=== PATIENT | male | born 1955 | race American Indian/Alaskan Native ===

== ENCOUNTER 2018-09-06 15:59 | Inpatient (IN) | payer MEDICARE ==
[2018-09-06] MEDS ORDERED: COGENTIN IM ONE (16:30)
[2018-09-06] MEDS ORDERED: BENADRYL IV ONE ×3 (16:31→18:10)
--- NOTE | 2018-09-06 16:39 | Emergency Department Report ---
ED Psych HPI - General Chief Complaint: Medical Clearance Stated Complaint: TREMORS Time Seen by Provider: 09/06/18 16:26 Source: patient, EMS Mode of arrival: Stretcher - History of Present Illness Initial Comments: Mr. Bazan is a 63-year-old male with history of depression, congestive heart failure, diabetes mellitus, hypertension, CKD, pancreatitis, coronary artery disease, neuropathy, glaucoma who presents from [facility] during a voluntary admission for depression. He has been treated since August 29. He was sent to our emergency department for evaluation for possible EPS. He's had tremors involuntary movements, trouble with speech, tremors. He has intact strength but unable to control his extremities. New medication Invega given. Symptoms started this morning. Additional psychotropic and mood stabilizing medications include Risperdal, Prozac, [place]. PRN medications includes Yossidol Complaint: feels depressed, other -: Gradual Associated Psychiatric Symptoms: depression Quality: constant Improves With: none Worsens With: medication Context: other (as per HPI) Associated Symptoms: denies other symptoms Treatments Prior to Arrival: other (benadryl) - Related Data Allergies Allergy/AdvReac Type Severity Reaction Status Date / Time Penicillins Allergy Unknown Verified 09/06/18 16:17 ED Review of Systems ROS: Stated complaint: TREMORS Other details as noted in HPI Comment: All other systems reviewed and negative Constitutional: denies: fever, malaise Respiratory: denies: cough Cardiovascular: denies: chest pain Gastrointestinal: denies: abdominal pain Neurological: denies: headache, numbness, paresthesias ED Past Medical Hx - Past Medical History Previous Medical History?: Yes Hx Hypertension: Yes Hx Congestive Heart Failure: Yes Hx Diabetes: Yes Hx Renal Disease: Yes (CKD) Hx Psychiatric Treatment: Yes (MDD, voluntary @ [facility]) Additional medical history: neuropathy, pancreatitis, CAD, glaucoma - Surgical History Past Surgical History?: Yes Hx Pacemaker: Yes Hx Internal Defibrillator: Yes - Social History Smoking Status: Unknown if ever smoked ED Physical Exam - General Limitations: Other General appearance: alert, in no apparent distress, other (no acute distress, stuttering speech) - Head Head exam: Present: atraumatic, normocephalic - Eye Eye exam: Present: normal appearance - ENT ENT exam: Present: mucous membranes moist - Neck Neck exam: Present: normal inspection, full ROM - Respiratory Respiratory exam: Present: normal lung sounds bilaterally. Absent: respiratory distress, wheezes, rales, rhonchi - Cardiovascular Cardiovascular Exam: Present: regular rate, normal rhythm. Absent: systolic murmur, diastolic murmur, rubs, gallop - GI/Abdominal GI/Abdominal exam: Present: soft, normal bowel sounds. Absent: distended, tenderness, guarding, rebound - Rectal Rectal exam: Present: deferred - Extremities Exam Extremities exam: Present: normal inspection - Back Exam Back exam: Present: normal inspection - Neurological Exam Neurological exam: Present: alert, oriented X3 - Expanded Neurological Exam Expanded Patient oriented to: Present: person, place, time Speech: Present: expressive aphasia (stuttering speech) Cranial nerves: EOM's Intact: Normal Sensory exam: Upper Extremity Light Touch: Normal Motor strength exam: RUE: 5, LUE: 5, RLE: 5, LLE: 5 Best Eye Response (Halma): (4) open spontaneously Best Motor Response (Valery): (6) obeys commands Best Verbal Response (Halma): (5) oriented Halma Total: 15 - Psychiatric Psychiatric exam: Present: normal affect, normal mood - Skin Skin exam: Present: warm, dry, intact, normal color. Absent: rash - Other Other exam information: Tremors noted on outstretched hands ED Course Vital Signs 09/06/18 09/06/18 09/06/18 16:17 16:44 17:45 Temperature 98.9 F Pulse Rate 88 80 Respiratory 18 18 18 Rate Blood Pressure 132/67 Blood Pressure 124/77 [Left] O2 Sat by Pulse 97 99 Oximetry ED Medical Decision Making - Lab Data Result diagrams: 09/06/18 16:33 09/06/18 16:33 - Radiology Data Radiology results: report reviewed - Medical Decision Making Mr. Rodriguez presents with speech disturbance, tremors, involuntary movenments, ataxia. DDX: Extraparametal symptoms, CVA, Wernicke's encephalopathy. No re ported hx of alcohol use according to patient Medications benadryl and cogentin given and symptoms worsened. During ED observation, Mr. Rodriguez attempted to get up from stretcher and fell hard to t he floor due to unstable gait. Fortunately, no signification trauma due to fall while in ED. NIHSS 4 TPA not indicated due to many possibilities for presentation beyond CVA. Admitted to hospitalist's service for further treatment. Critical care attestation.: If time is entered above; I have spent that time in minutes in the direct care of this critically ill patient, excluding procedure time. ED Disposition Clinical Impression: Ataxia, Expressive aphasia Disposition: DC-09 OP ADMIT IP TO THIS HOSP Is pt being admited?: Yes Does the pt Need Aspirin: No Condition: Stable Referrals: PRIMARY CARE, [Primary Care Provider] - 3-5 Days
[2018-09-06 17:22] LABS: Basophils % (Auto) 0.7 % (0.0-1.8); Eosinophils # (Auto) 0.2 K/mm3 (0.0-0.4); Eosinophils % (Auto) 2.3 % (0.0-4.3); Hematocrit 33.1 % (35.5-45.6); Hemoglobin 10.7 gm/dl (11.8-15.2); Lymphocytes % (Auto) 14.6 % (13.4-35.0); Mean Corpuscular HGB Conc 32 % (32-34); Mean Corpuscular Volume 87 fl (84-94); Monocytes # (Auto) 0.7 K/mm3 (0.0-0.8); Monocytes % (Auto) 10.2 % (0.0-7.3); Platelet Count 171 K/mm3 (140-440); Red Blood Count 3.82 M/mm3 (3.65-5.03); Red Cell Distribution Width 15.9 % (13.2-15.2)
[2018-09-06 17:36] LABS: BUN/Creatinine Ratio 13; Blood Urea Nitrogen 15 mg/dL (9-20); Calcium 8.7 mg/dL (8.4-10.2); Hemolysis Index 7
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
[2018-09-06 19:16] LABS: INR 0.88 (0.87-1.13)
[2018-09-06 19:17] LABS: Partial Thromboplastin Time 26.5 Sec. (24.2-36.6)
[2018-09-06] MEDS ORDERED: D50W (25GM) Syringe IV PRN (19:58)
[2018-09-06] MEDS ORDERED: SODIUM CHLORIDE FLUSH SYRINGE 10 ML IV PRN (20:08)
[2018-09-06] MEDS ORDERED: APRESOLINE IV PRN (20:28)
--- NOTE | 2018-09-06 20:33 | History and Physical Report ---
<TOAN FLOWERS - Last Filed: 09/06/18 20:35> History of Present Illness Date of examination: 09/06/18 Date of admission: 09/06/18 19:00 Chief complaint: Suspicion of EPS History of present illness: 63-year-old -[place] male who resides at [facility] with history major depressive disorder and hypertension, CHF, DM 2, GERD, CAD who presents to [facility] via EMS with complaints tremors and involuntary movement. Patient was found to have questionable EPS activity. He had tremors in all extremities, involuntary movements, trouble with speech. EMS was called and he was transported to our facility for further evaluation and treatment. He denies fever, cough, hemoptysis, headache, dizziness, visual alterations, SI/HI. Past History Past Medical History: CAD, diabetes, GERD, heart failure, hypertension, other (major depressive disorder, glaucoma, neuropathy, pancreatitis, genital herpes ) Past Surgical History: Other (pacemaker, defibrillator) Social history: smoking, alcohol abuse (patient does not want to discuss alcohol history), other (voluntary admission to [facility]) Family history: no significant family history Medications and Allergies Allergies Allergy/AdvReac Type Severity Reaction Status Date / Time Penicillins Allergy Unknown Verified 09/06/18 16:17 Active Meds: Active Medications Acyclovir (Zovirax) 400 mg PO Q12HR [facility] Aspirin (Aspirin) 325 mg PO QDAY [facility] Atorvastatin Calcium (Lipitor) 40 mg PO QHS [facility] Dextrose (D50w (25gm) Syringe) 50 ml IV PRN PRN PRN Reason: Hypoglycemia Fluoxetine HCl (Prozac) 20 mg PO QDAY [facility] Folic Acid (Folvite) 1 mg PO QDAY [facility] Gabapentin (Neurontin) 600 mg PO TID [facility] Hydralazine HCl (Apresoline) 10 mg IV Q4HR PRN PRN Reason: Blood Pressure Thiamine HCl 100 mg/ Sodium (Chloride) 51 mls @ 100 mls/hr IV TID [facility] Stop: 09/12/18 20:59 Insulin Glargine (Lantus) 15 units SUB-Q QHS JOLENE Insulin Human Lispro (Humalog) 0 unit SUB-Q ACHS JOLENE; Protocol Insulin Human Lispro (Humalog) 5 unit SUB-Q AC [facility]OL[facility] [place] Carbonate (Eskalith) 300 mg PO BID JOL[facility] Metoprolol Succinate (Toprol Xl) 50 mg PO QDAY [facility] Pantoprazole Sodium (Protonix) 40 mg PO QDAY [facility] Risperidone (Risperdal) 1 mg PO HS [facility]OLENE Sodium Chloride (Sodium Chloride Flush Syringe 10 Ml) 10 ml IV PRN PRN PRN Reason: LINE FLUSH Review of Systems All systems: negative (reviewed and no additional multiple complaints except as listed below) Neurological: tremors, lack of coordination, confusion, gait dysfunction Psychiatric: other (major depression disorder) Exam - Physical Exam Narrative exam: Physical exam General appearance: Present: No acute distress, alert, attentive 3, Neuro: expressive aphasia, delayed response stutters when speaking, tremors to upper extremities, unsteady gait - EENT Eyes: Present: PERRL, EOM intact ENT: hearing intact, poor dentition - Neck Neck: Present: supple, normal ROM - Respiratory Respiratory effort: Non-labored Respiratory: Clear throughout - Cardiovascular Heart rate:80 (bpm) Rhythm: Sinus rhythm regular Heart Sounds: Present: S1 & S2. Absent: rub, click - Extremities Extremities: no ischemia, pulses intact, - Peripheral Assessment Peripheral Pulses: within normal limits - Abdominal General gastrointestinal: soft, non-tender, normal bowel sounds - Integumentary Integumentary: Present: warm, dry - Musculoskeletal Musculoskeletal: Able to move all extremities, generalized weakness - Psychiatric Psychiatric: cooperative - Constitutional Vitals: Temp Pulse Resp BP Pulse Ox 98.9 F 80 18 124/77 99 09/06/18 16:17 09/06/18 17:45 09/06/18 17:45 09/06/18 17:45 09/06/18 17:45 Results - Labs CBC & Chem 7: 09/06/18 16:33 09/06/18 16:33 Labs: Laboratory Last Values WBC 6.9 K/mm3 (4.5-11.0) 09/06/18 16:33 RBC 3.82 M/mm3 (3.65-5.03) 09/06/18 16:33 Hgb 10.7 gm/dl (11.8-15.2) L 09/06/18 16:33 Hct 33.1 % (35.5-45.6) L 09/06/18 16:33 MCV 87 fl (84-94) 09/06/18 16:33 MCH 28 pg (28-32) 09/06/18 16:33 MCHC 32 % (32-34) 09/06/18 16:33 RDW 15.9 % (13.2-15.2) H 09/06/18 16:33 Plt Count 171 K/mm3 (140-440) 09/06/18 16:33 Lymph % (Auto) 14.6 % (13.4-35.0) 09/06/18 16:33 [place] % (Auto) 10.2 % (0.0-7.3) H 09/06/18 16:33 Eos % (Auto) 2.3 % (0.0-4.3) 09/06/18 16:33 Baso % (Auto) 0.7 % (0.0-1.8) 09/06/18 16:33 Lymph # 1.0 K/mm3 (1.2-5.4) L 09/06/18 16:33 [place] # 0.7 K/mm3 (0.0-0.8) 09/06/18 16:33 Eos # 0.2 K/mm3 (0.0-0.4) 09/06/18 16:33 Baso # 0.0 K/mm3 (0.0-0.1) 09/06/18 16:33 Seg Neutrophils % 72.2 % (40.0-70.0) H 09/06/18 16:33 Seg Neutrophils # 5.0 K/mm3 (1.8-7.7) 09/06/18 16:33 PT 12.5 Sec. (12.2-14.9) 09/06/18 18:54 INR 0.88 (0.87-1.13) 09/06/18 18:54 APTT 26.5 Sec. (24.2-36.6) 09/06/18 18:54 Sodium 142 mmol/L (137-145) 09/06/18 16:33 Potassium 4.0 mmol/L (3.6-5.0) 09/06/18 16:33 Chloride 106.4 mmol/L (98-107) 09/06/18 16:33 Carbon Dioxide 25 mmol/L (22-30) 09/06/18 16:33 15 mmol/L 09/06/18 16:33 BUN 15 mg/dL (9-20) 09/06/18 16:33 1.2 mg/dL (0.8-1.5) 09/06/18 16:33 Estimated GFR > 60 ml/min 09/06/18 16:33 13 % 09/06/18 16:33 Glucose 74 mg/dL (75-100) L 09/06/18 16:33 POC Glucose 109 (70-105) H 09/06/18 19:30 Calcium 8.7 mg/dL (8.4-10.2) 09/06/18 16:33 < 0.010 ng/mL (0.00-0.029) 09/06/18 18:54 [place] 1.0 mmol/L (0.0-1.2) 09/06/18 16:33 Plasma/Serum Alcohol < 0.01 % (0-0.07) 09/06/18 19:26 Short CBC 09/06/18 Range/Units 16:33 WBC 6.9 (4.5-11.0) K/mm3 Hgb 10.7 L (11.8-15.2) gm/dl Hct 33.1 L (35.5-45.6) % Plt Count 171 (140-440) K/mm3 BMP 09/06/18 16:33 Sodium 142 Potassium 4.0 Chloride 106.4 Carbon Dioxide 25 BUN 15 Creatinine 1.2 Glucose 74 L Calcium 8.7 Cardiac Enzymes 09/06/18 Range/Units 18:54 Troponin T < 0.010 (0.00-0.029) ng/mL - Imaging and Cardiology CT Scan - head: report reviewed ( No acute intracranial process. ), image reviewed Assessment and Plan Assessment and plan: 63-year-old -[place] male who resides at [facility] with history major depressive disorder and hypertension, CHF, DM 2, GERD, CAD who presents to [facility] via EMS with complaints tremors and involuntary movement. On examination patient has expressive aphasia (stutters and repeats the same word several times before complete and sentence), involuntary movements, tremors in all extremities and ataxia. While in the ED he attempted to get up from stretcher and fell hard to the floor due to unstable gait. He did not sustain any trauma related to this fall. CT head was unrevealing for acute intracranial processes. He'll be admitted to the medical floor. Encephalopathy Hypertension GERD CHF CAD DM 2 Major depressive disorder Plan: Continue supportive care Neurochecks per stroke protocol Neurology consulted Vitamin B1 Lab pending Start thiamine 100 mg 3 times a day Continue folic acid Continue acyclovir 400 mg twice a day MRI/MRA, carotid duplex pending Monitor BP Metoprolol 50 mg daily IV hydralazine when necessary POC BG monitoring HbgA1c pending Scheduled Premeal and Lantus, SSI coverage ASA, Statin Resume antipsychotic meds Hold Invega Drug Panel pending DVT PPX on Heparin and SCD's Medication reconciliation pending Advance Directives: No VTE prophylaxis?: Mechanical Plan of care discussed with patient/family: Yes <MEGAN FOX S - Last Filed: 09/07/18 14:33> History of Present Illness Date of admission: 09/06/18 19:00 Medications and Allergies Active Meds: Active Medications Acyclovir (Zovirax) 400 mg PO Q12HR [facility] Last Admin: 09/07/18 10:14 Dose: 400 mg Documented by: Aspirin (Aspirin) 325 mg PO QDAY [facility] Last Admin: 09/07/18 10:15 Dose: 325 mg Documented by: Atorvastatin Calcium (Lipitor) 40 mg PO QHS [facility] Last Admin: 09/06/18 22:01 Dose: 40 mg Documented by: Benztropine Mesylate (Cogentin) 1 mg PO DAILY [facility] Dextrose (D50w (25gm) Syringe) 50 ml IV PRN PRN PRN Reason: Hypoglycemia Fluoxetine HCl (Prozac) 20 mg PO QDAY [facility] Last Admin: 09/07/18 10:14 Dose: 20 mg Documented by: Folic Acid (Folvite) 1 mg PO QDAY [facility] Last Admin: 09/07/18 10:16 Dose: 1 mg Documented by: Gabapentin (Neurontin) 600 mg PO TID [facility] Last Admin: 09/07/18 10:15 Dose: 600 mg Documented by: Haloperidol Lactate (Haldol) 5 mg IM Q6H PRN PRN Reason: Agitation Last Admin: 09/07/18 00:40 Dose: 5 mg Documented by: Heparin Sodium (Porcine) (Heparin) 5,000 unit SUB-Q Q12HR [facility] Last Admin: 09/07/18 10:19 Dose: 5,000 unit Documented by: Hydralazine HCl (Apresoline) 10 mg IV Q4HR PRN PRN Reason: Blood Pressure [facility]) [facility] Last Admin: 09/06/18 21:59 Dose: 15 units Documented by: Insulin Human Lispro (Humalog) 0 unit SUB-Q ACHS [facility]; Protocol Last Admin: 09/07/18 12:52 Dose: 1 unit Documented by: Insulin Human Lispro (Humalog) 5 unit SUB-Q [facility] Last Admin: 09/07/18 12:52 Dose: 5 unit Documented by: [place] Carbonate (Eskalith) 300 mg PO BID [facility] Last Admin: 09/07/18 10:15 Dose: 300 mg Documented by: Metoprolol Succinate (Toprol Xl) 50 mg PO QDAY [facility] Last Admin: 09/07/18 10:18 Dose: 50 mg Documented by: Pantoprazole Sodium (Protonix) 40 mg PO QDAY [facility] Last Admin: 09/07/18 10:15 Dose: 40 mg Documented by: Sodium Chloride (Sodium Chloride Flush Syringe 10 Ml) 10 ml IV PRN PRN PRN Reason: LINE FLUSH Thiamine HCl (Vitamin B-1) 100 mg PO QDAY [facility] Exam - Constitutional Vitals: Temp Pulse Resp BP Pulse Ox 97.6 F 90 20 134/80 99 09/07/18 08:24 09/07/18 10:18 09/07/18 12:00 09/07/18 10:18 09/07/18 12:00 Results - Labs CBC & Chem 7: 09/06/18 16:33 09/06/18 16:33 Labs: Laboratory Last Values WBC 6.9 K/mm3 (4.5-11.0) 09/06/18 16:33 RBC 3.82 M/mm3 (3.65-5.03) 09/06/18 16:33 Hgb 10.7 gm/dl (11.8-15.2) L 09/06/18 16:33 Hct 33.1 % (35.5-45.6) L 09/06/18 16:33 MCV 87 fl (84-94) 09/06/18 16:33 MCH 28 pg (28-32) 09/06/18 16:33 MCHC 32 % (32-34) 09/06/18 16:33 RDW 15.9 % (13.2-15.2) H 09/06/18 16:33 Plt Count 171 K/mm3 (140-440) 09/06/18 16:33 Lymph % (Auto) 14.6 % (13.4-35.0) 09/06/18 16:33 [place] % (Auto) 10.2 % (0.0-7.3) H 09/06/18 16:33 Eos % (Auto) 2.3 % (0.0-4.3) 09/06/18 16:33 Baso % (Auto) 0.7 % (0.0-1.8) 09/06/18 16:33 Lymph # 1.0 K/mm3 (1.2-5.4) L 09/06/18 16:33 [place] # 0.7 K/mm3 (0.0-0.8) 09/06/18 16:33 Eos # 0.2 K/mm3 (0.0-0.4) 09/06/18 16:33 Baso # 0.0 K/mm3 (0.0-0.1) 09/06/18 16:33 Seg Neutrophils % 72.2 % (40.0-70.0) H 09/06/18 16:33 Seg Neutrophils # 5.0 K/mm3 (1.8-7.7) 09/06/18 16:33 PT 12.5 Sec. (12.2-14.9) 09/06/18 18:54 INR 0.88 (0.87-1.13) 09/06/18 18:54 APTT 26.5 Sec. (24.2-36.6) 09/06/18 18:54 Sodium 142 mmol/L (137-145) 09/06/18 16:33 Potassium 4.0 mmol/L (3.6-5.0) 09/06/18 16:33 Chloride 106.4 mmol/L (98-107) 09/06/18 16:33 Carbon Dioxide 25 mmol/L (22-30) 09/06/18 16:33 15 mmol/L 09/06/18 16:33 BUN 15 mg/dL (9-20) 09/06/18 16:33 1.2 mg/dL (0.8-1.5) 09/06/18 16:33 Estimated GFR > 60 ml/min 09/06/18 16:33 13 % 09/06/18 16:33 Glucose 74 mg/dL (75-100) L 09/06/18 16:33 POC Glucose 183 (70-105) H 09/07/18 12:12 12.3 % (4-6) H 09/06/18 20:32 Calcium 8.7 mg/dL (8.4-10.2) 09/06/18 16:33 < 0.010 ng/mL (0.00-0.029) 09/06/18 18:54 Triglycerides 67 mg/dL (2-149) 09/06/18 20:32 Cholesterol 108 mg/dL (50-199) 09/06/18 20:32 49 mg/dL (50-130) L 09/06/18 20:32 52 mg/dL (40-59) 09/06/18 20:32 2.07 % 09/06/18 20:32 Straw (Yellow) 09/07/18 13:22 Clear (Clear) 09/07/18 13:22 7.0 (5.0-7.0) 09/07/18 13:22 Ur Specific [place] 1.008 (1.003-1.030) 09/07/18 13:22 <15 mg/dl mg/dL (Negative) 09/07/18 13:22 50 mg/dL (Negative) 09/07/18 13:22 Neg mg/dL (Negative) 09/07/18 13:22 Neg (Negative) 09/07/18 13:22 Neg (Negative) 09/07/18 13:22 Neg (Negative) 09/07/18 13:22 < 2.0 mg/dL (<2.0) 09/07/18 13:22 Ur Leukocyte Esterase Neg (Negative) 09/07/18 13:22 < 1.0 /HPF (0.0-6.0) 09/07/18 13:22 2.0 /HPF (0.0-6.0) 09/07/18 13:22 Presumptive negative 09/07/18 13:22 Presumptive negative 09/07/18 13:22 Ur Barbiturates Screen Presumptive negative 09/07/18 13:22 Ur Phencyclidine Scrn Presumptive negative 09/07/18 13:22 Ur Amphetamines Screen Presumptive negative 09/07/18 13:22 U Benzodiazepines Scrn Presumptive negative 09/07/18 13:22 [place] 1.0 mmol/L (0.0-1.2) 09/06/18 16:33 Presumptive negative 09/07/18 13:22 U Marijuana (THC) Screen Presumptive negative 09/07/18 13:22 Disclamer 09/07/18 13:22 Plasma/Serum Alcohol < 0.01 % (0-0.07) 09/06/18 19:26 Assessment and Plan Assessment and plan: Physical therapy ordered Echo ordered and reviewed the history and physical HbA1c more than 12 [place] Lantus dosage at the time of discharge Increase Lantus dosage now and also regular insulin before meals Advance Directives: Yes (full code) Plan of care discussed with patient/family: Yes
[2018-09-06 21:50] LABS: Chol/HDL Ratio 2.07 %
[2018-09-06] MEDS: VITAMIN B-1 100 MG in NACL 0.9% 50 ML IV SCH (21:58)
[2018-09-06] MEDS: LANTUS SUB-Q SCH (21:59)
[2018-09-06] MEDS: HumaLOG SUB-Q SCH (21:59)
[2018-09-06] MEDS: HEPARIN SUB-Q SCH (22:00)
[2018-09-06] MEDS ORDERED: RisperDAL PO SCH (22:00)
[2018-09-06] MEDS: ESKALITH PO SCH (22:01)
[2018-09-06] MEDS: ZOVIRAX PO SCH (22:02)
[2018-09-07] MEDS: HALDOL IM PRN ×2 (00:40→05:40)
[2018-09-07] MEDS: HumaLOG SUB-Q SCH ×7 (07:30→22:08)
[2018-09-07] MEDS: VITAMIN B-1 100 MG in NACL 0.9% 50 ML IV SCH (08:00)
[2018-09-07] MEDS ORDERED: TUMS PO ONE (10:13)
[2018-09-07] MEDS: ZOVIRAX PO SCH ×2 (10:14→22:09)
[2018-09-07] MEDS: PROzac PO SCH (10:14)
[2018-09-07] MEDS: PROTONIX PO SCH (10:15)
[2018-09-07] MEDS: ASPIRIN PO SCH (10:15)
[2018-09-07] MEDS: ESKALITH PO SCH ×2 (10:15→22:07)
[2018-09-07] MEDS: NEURONTIN PO SCH ×3 (10:15→22:07)
[2018-09-07] MEDS: FOLVITE PO SCH (10:16)
[2018-09-07] MEDS: TOPROL XL PO SCH (10:18)
[2018-09-07] MEDS: HEPARIN SUB-Q SCH ×2 (10:19→22:08)
--- NOTE | 2018-09-07 11:00 | Consultation ---
History of Present Illness - Reason for Consult Consult date: 09/07/18 Reason for consult: Mental Healt Evaluation Requesting physician: TOAN FLOWERS - Chief Complaint Chief complaint: "I felt weird yesterday" - History of Present Psychiatric Illness 63-year-old AA male who presented to the ER for possible EPS symptoms, he was a patient at [facility]. Today the patient was calm and cooperative during the assessment. He stated that he received the monthly Invega injection yesterday. He stated that he felt "weird" hours later after receiving the injection. He stated that he had involuntary movements and his tongue felt "funny." He stated that his home medications are Prozac, Risperdal, and Combes. He stated that Lithiun has been a home medication "for awhile." He stated that he is seen at the [facility] for outpatient psy services. He stated that he checked himself into [facility] 29 Aug 2018 for having suicidal thoughts because his mother had recently . He stated that he is compliant with his medications. He denies SI/HI's and AVH's. He denies erratic sleep, alcohol consumption (etoh), and being depressed. Medications and Allergies Allergies Allergy/AdvReac Type Severity Reaction Status Date / Time Penicillins Allergy Unknown Verified 09/06/18 16:17 Active Meds: Active Medications Acyclovir (Zovirax) 400 mg PO Q12HR [facility] Last Admin: 09/07/18 10:14 Dose: 400 mg Documented by: Aspirin (Aspirin) 325 mg PO QDAY [facility] Last Admin: 09/07/18 10:15 Dose: 325 mg Documented by: Atorvastatin Calcium (Lipitor) 40 mg PO QHS [facility] Last Admin: 09/06/18 22:01 Dose: 40 mg Documented by: Dextrose (D50w (25gm) Syringe) 50 ml IV PRN PRN PRN Reason: Hypoglycemia Fluoxetine HCl (Prozac) 20 mg PO QDAY [facility] Last Admin: 09/07/18 10:14 Dose: 20 mg Documented by: Folic Acid (Folvite) 1 mg PO QDAY [facility] Last Admin: 09/07/18 10:16 Dose: 1 mg Documented by: Gabapentin (Neurontin) 600 mg PO TID [facility] Last Admin: 09/07/18 10:15 Dose: 600 mg Documented by: Haloperidol Lactate (Haldol) 5 mg IM Q6H PRN PRN Reason: Agitation Last Admin: 09/07/18 00:40 Dose: 5 mg Documented by: Heparin Sodium (Porcine) (Heparin) 5,000 unit SUB-Q Q12HR [facility] Last Admin: 09/07/18 10:19 Dose: 5,000 unit Documented by: Hydralazine HCl (Apresoline) 10 mg IV Q4HR PRN PRN Reason: Blood Pressure Thiamine HCl 100 mg/ Sodium (Chloride) 51 mls @ 100 mls/hr IV TID [facility] Stop: 09/12/18 20:59 Last Admin: 09/06/18 21:58 Dose: 100 mls/hr Documented by: Insulin Glargine (Lantus) 15 units SUB-Q QHS [facility] Last Admin: 09/06/18 21:59 Dose: 15 units Documented by: Insulin Human Lispro (Humalog) 0 unit SUB-Q ACHS [facility]; Protocol Last Admin: 09/07/18 07:30 Dose: Not Given Documented by: Insulin Human Lispro (Humalog) 5 unit SUB-Q AC [facility] Last Admin: 09/07/18 07:30 Dose: Not Given Documented by: Combes Carbonate (Eskalith) 300 mg PO BID [facility] Last Admin: 09/07/18 10:15 Dose: 300 mg Documented by: Metoprolol Succinate (Toprol Xl) 50 mg PO QDAY [facility] Last Admin: 09/07/18 10:18 Dose: 50 mg Documented by: Pantoprazole Sodium (Protonix) 40 mg PO QDAY [facility] Last Admin: 09/07/18 10:15 Dose: 40 mg Documented by: Sodium Chloride (Sodium Chloride Flush Syringe 10 Ml) 10 ml IV PRN PRN PRN Reason: LINE FLUSH Past psychiatric history - Past Medical History Past Medical History: diabetes, heart failure, hypertension Past Surgical History: No surgical history - past Psychiatric treatment and history psychiatric treatment history: Hx of Depression. Denies a fam psy h x. - Social History Social history: other (Homeless) Mental Status Exam - Vital signs Last Vital Signs Temp 97.6 F 09/07/18 08:24 Pulse 90 09/07/18 10:18 Resp 18 09/07/18 08:24 BP 134/80 09/07/18 10:18 Pulse Ox 100 09/07/18 08:24 - Exam Narrative exam: MSE: Appearance: calm, cooperative Behavior: regular eye contact Speech: regular rate and tone Mood: "okay" Affect: congruent to mood Thought Process: logical Thought Content: denies SI/HI's and AVH's Motor Activity: sitting up in bed Cognition: A/O x 3 Insight: appropriate Judgment: appropriate I Results Result Diagrams: 09/06/18 16:33 09/06/18 16:33 Abnormal lab results 09/06/18 09/06/18 09/06/18 Range/Units 16:33 16:33 19:30 Hgb 10.7 L (11.8-15.2) gm/dl Hct 33.1 L (35.5-45.6) % RDW 15.9 H (13.2-15.2) % Phillips % (Auto) 10.2 H (0.0-7.3) % Lymph # 1.0 L (1.2-5.4) K/mm3 Seg Neutrophils % 72.2 H (40.0-70.0) % Glucose 74 L (75-100) mg/dL POC Glucose 109 H (70-105) Hemoglobin A1c (4-6) % LDL Cholesterol Direct (50-130) mg/dL 09/06/18 09/06/18 09/06/18 Range/Units 20:32 20:32 21:07 Hgb (11.8-15.2) gm/dl Hct (35.5-45.6) % RDW (13.2-15.2) % Phillips % (Auto) (0.0-7.3) % Lymph # (1.2-5.4) K/mm3 Seg Neutrophils % (40.0-70.0) % Glucose (75-100) mg/dL POC Glucose 266 H (70-105) Hemoglobin A1c 12.3 H (4-6) % LDL Cholesterol Direct 49 L (50-130) mg/dL 09/07/18 Range/Units 08:29 Hgb (11.8-15.2) gm/dl Hct (35.5-45.6) % RDW (13.2-15.2) % Phillips % (Auto) (0.0-7.3) % Lymph # (1.2-5.4) K/mm3 Seg Neutrophils % (40.0-70.0) % Glucose (75-100) mg/dL POC Glucose 125 H (70-105) Hemoglobin A1c (4-6) % LDL Cholesterol Direct (50-130) mg/dL All other labs normal. Assessment and Plan Assessment and plan: Impression: Hx of Depression. Possible EPS on arrival to ER. R/O medication induced tremors (Combes). Combes level 1.0. Today the patient was calm and cooperative during the assessment. UA/UDS/neuro consult/MRI/MRA of the head is pending. No involuntary movements noted. Recommendation/Plan: Continue home medications Combes 300 mg PO BID for mood, Prozac 20 mg PO daily for depression, and start Cogentin 1 mg PO daily for EPS prevention. The patient received the monthly Invega injection 2 days ago. Discussed possible suicidality/medication induced delmer with the patient reference Prozac, he verbalized understanding. Will follow up with the patient in 24 hours. Dispo: The patient can return to [facility] once medically clear. Staffed with Dr Tien Peng.
--- NOTE | 2018-09-07 12:38 | Event Note ---
Date: 09/07/[address] Strong, he agreed no need for me to see this patient since Dr. Sykes of psychiatry is managing his tremors/EPS.
--- NOTE | 2018-09-07 13:18 | Progress Note ---
Assessment and Plan Assessment and plan: Patient is a 63-year-old -[place] man with a history of major depressive disorder, hypertension, CHF, DM 2, GERD and CAD who presents to [facility] via EMS with complaints tremors and involuntary movement. On examination patient has expressive aphasia (stutters and repeats the same word several times before complete and sentence), involuntary movements, tremors in all extremities and ataxia. While in the ED he attempted to get up from stretcher and fell hard to the floor due to unstable gait. He did not sustain any trauma related to this fall. CT head was unrevealing for acute intracranial processes. He'll be admitted to the medical floor. He is from [facility]. He was under 1013 for SI but resolved and 1013 removed. He was suppose to transition to the [place] prior this acute confusion, tremors and ataxia. He believes he started a new antipsych medications. -Suspected EPS: start cogentin. Psych consulted, input noted -Acute Encephalopathy -Hypertension -GERD -CHF, stable -CAD, stable -DM 2 poorly controlled, A1c 12.3: add ssi -Major depressive disorder: he denies SI Plan: Continue supportive care Neurochecks per stroke protocol Neurology consult cancelled, psych issue Vitamin B1 Lab pending Start thiamine 100 mg 3 times a day Continue folic acid Continue acyclovir 400 mg twice a day MRI/MRA, carotid duplex pending Monitor BP Metoprolol 50 mg daily IV hydralazine when necessary POC BG monitoring HbgA1c pending==>12.3 Scheduled Premeal and Lantus, SSI coverage ASA, Statin Resume antipsychotic meds Hold Invega Drug Panel pending==>UDS still pending. DVT PPX on Heparin and SCD's Medication reconciliation pending Disposition: continue inpatient care, order PT, and anticipate discharge tomorrow based upon PT recommendation. History Interval history: Patient was seen and examined. Follow-up on current diagnosis of AMS/tremors, improved. Overnight uneventful. Patient denies any chest pain, shortness of breath, nausea/vomiting or severe headaches. Imaging, nursing note, chart, labs and old chart reviewed. Discussed with patient. Hospitalist Physical - Physical exam Narrative exam: GEN: WDWN, NAD, Awake, Alert, Orientated x 3 HEENT: NCAT, EOMI, PERRL, OP Clear NECK: supple, no adenopathy, no thyromegaly, no JVD CVS/HEART: RRR, normal S1S2, pulses present bilaterally CHEST/LUNGS: CTA B, Symmetrical chest expansion, good air entry bilaterally GI/Abdomen: soft, NTND, good bowel sounds, no guarding or rebound /Bladder: no suprapubic tenderness, no CVA or paraspinal tenderness EXT/Skin: no c/c/e, no obvious rash MSK: FROM x 4 Neuro: CN 2-12 grossly intact, no new focal deficits, fine intention tremor Psych: calm - Constitutional Vitals: Temp Pulse Resp BP Pulse Ox 97.6 F 90 18 134/80 100 09/07/18 08:24 09/07/18 10:18 09/07/18 08:24 09/07/18 10:18 09/07/18 08:24 Results - Labs CBC & Chem 7: 09/06/18 16:33 09/06/18 16:33 Labs: Laboratory Last Values WBC 6.9 K/mm3 (4.5-11.0) 09/06/18 16:33 RBC 3.82 M/mm3 (3.65-5.03) 09/06/18 16:33 Hgb 10.7 gm/dl (11.8-15.2) L 09/06/18 16:33 Hct 33.1 % (35.5-45.6) L 09/06/18 16:33 MCV 87 fl (84-94) 09/06/18 16:33 MCH 28 pg (28-32) 09/06/18 16:33 MCHC 32 % (32-34) 09/06/18 16:33 RDW 15.9 % (13.2-15.2) H 09/06/18 16:33 Plt Count 171 K/mm3 (140-440) 09/06/18 16:33 Lymph % (Auto) 14.6 % (13.4-35.0) 09/06/18 16:33 [place] % (Auto) 10.2 % (0.0-7.3) H 09/06/18 16:33 Eos % (Auto) 2.3 % (0.0-4.3) 09/06/18 16:33 Baso % (Auto) 0.7 % (0.0-1.8) 09/06/18 16:33 Lymph # 1.0 K/mm3 (1.2-5.4) L 09/06/18 16:33 [place] # 0.7 K/mm3 (0.0-0.8) 09/06/18 16:33 Eos # 0.2 K/mm3 (0.0-0.4) 09/06/18 16:33 Baso # 0.0 K/mm3 (0.0-0.1) 09/06/18 16:33 Seg Neutrophils % 72.2 % (40.0-70.0) H 09/06/18 16:33 Seg Neutrophils # 5.0 K/mm3 (1.8-7.7) 09/06/18 16:33 PT 12.5 Sec. (12.2-14.9) 09/06/18 18:54 INR 0.88 (0.87-1.13) 09/06/18 18:54 APTT 26.5 Sec. (24.2-36.6) 09/06/18 18:54 Sodium 142 mmol/L (137-145) 09/06/18 16:33 Potassium 4.0 mmol/L (3.6-5.0) 09/06/18 16:33 Chloride 106.4 mmol/L (98-107) 09/06/18 16:33 Carbon Dioxide 25 mmol/L (22-30) 09/06/18 16:33 15 mmol/L 09/06/18 16:33 BUN 15 mg/dL (9-20) 09/06/18 16:33 1.2 mg/dL (0.8-1.5) 09/06/18 16:33 Estimated GFR > 60 ml/min 09/06/18 16:33 13 % 09/06/18 16:33 Glucose 74 mg/dL (75-100) L 09/06/18 16:33 POC Glucose 125 (70-105) H 09/07/18 08:29 12.3 % (4-6) H 09/06/18 20:32 Calcium 8.7 mg/dL (8.4-10.2) 09/06/18 16:33 < 0.010 ng/mL (0.00-0.029) 09/06/18 18:54 Triglycerides 67 mg/dL (2-149) 09/06/18 20:32 Cholesterol 108 mg/dL (50-199) 09/06/18 20:32 49 mg/dL (50-130) L 09/06/18 20:32 52 mg/dL (40-59) 09/06/18 20:32 2.07 % 09/06/18 20:32 [place] 1.0 mmol/L (0.0-1.2) 09/06/18 16:33 Plasma/Serum Alcohol < 0.01 % (0-0.07) 09/06/18 19:26 Active Medications - Current Medications Current Medications: Generic Name Dose Route Start Last Admin Trade Name Freq PRN Reason Stop Dose Admin Acyclovir 400 mg 09/06/18 22:00 09/07/18 10:14 Zovirax PO 400 mg Q12HR JOLENE Administration Aspirin 325 mg 09/07/18 10:00 09/07/18 10:15 Aspirin PO 325 mg QDAY JOLENE Administration Atorvastatin Calcium 40 mg 09/06/18 22:00 09/06/18 22:01 Lipitor PO 40 mg QHS JOLENE Administration Benztropine Mesylate 1 mg 09/07/18 13:00 Cogentin PO DAILY JOLENE Dextrose 50 ml 09/06/18 19:58 D50w (25gm) Syringe IV PRN PRN Hypoglycemia Fluoxetine HCl 20 mg 09/07/18 10:00 09/07/18 10:14 Prozac PO 20 mg QDAY JOLENE Administration Folic Acid 1 mg 09/07/18 10:00 09/07/18 10:16 Folvite PO 1 mg QDAY JOLENE Administration Gabapentin 600 mg 09/07/18 08:00 09/07/18 10:15 Neurontin PO 600 mg TID JOLENE Administration Haloperidol Lactate 5 mg 09/07/18 00:25 09/07/18 00:40 Haldol IM 5 mg Q6H PRN Administration Agitation Heparin Sodium (Porcine) 5,000 unit 09/06/18 22:00 09/07/18 10:19 Heparin SUB-Q 5,000 unit Q12HR JOLENE Administration Hydralazine HCl 10 mg 09/06/18 20:28 Apresoline IV Q4HR PRN Blood Pressure Thiamine HCl 100 mg/ Sodium 51 mls @ 100 mls/hr 09/06/18 21:00 09/07/18 13:01 Chloride IV 09/12/18 20:59 100 mls/hr TID JOLENE Administration Insulin Glargine 15 units 09/06/18 22:00 09/06/18 21:59 Lantus SUB-Q 15 units QHS JOLENE Administration Insulin Human Lispro 0 unit 09/06/18 22:00 09/07/18 12:52 Humalog SUB-Q 1 unit ACHS JOLENE Administration Protocol Insulin Human Lispro 5 unit 09/07/18 07:30 09/07/18 12:52 Humalog SUB-Q 5 unit AC JOLENE Administration [place] Carbonate 300 mg 09/06/18 22:00 09/07/18 10:15 Eskalith PO 300 mg BID JOLENE Administration Metoprolol Succinate 50 mg 09/07/18 10:00 09/07/18 10:18 Toprol Xl PO 50 mg QDAY JOLENE Administration Pantoprazole Sodium 40 mg 09/07/18 10:00 09/07/18 10:15 Protonix PO 40 mg QDAY JOLENE Administration Sodium Chloride 10 ml 09/06/18 20:08 Sodium Chloride Flush Syringe 10 Ml IV PRN PRN LINE FLUSH
[2018-09-07 14:02] LABS: Bilirubin,Urine NEG (Negative); Blood,Urine NEG (Negative); Color,Urine Straw (Yellow); Protein,Urine <15 mg/dL mg/dL (Negative); Urobilinogen,Urine < 2.0 mg/dL (<2.0); WBC,Urine < 1.0 /HPF (0.0-6.0)
[2018-09-07 14:08] LABS: Amphetamine Screen,Urine PRESUMPTIVE NEGATIVE; Benzodiazepines Screen,Urine PRESUMPTIVE NEGATIVE; Cannabinoid Screen,Urine PRESUMPTIVE NEGATIVE; Cocaine Screen,Urine PRESUMPTIVE NEGATIVE; Methadone Screen,Urine PRESUMPTIVE NEGATIVE; Opiate Screen,Urine PRESUMPTIVE NEGATIVE
--- NOTE | 2018-09-07 14:19 | Vascular Lab Report ---
PROCEDURE: VL CAROTID DUPLEX BILAT TECHNIQUE: Duplex Doppler ultrasound of the common, internal and external carotid arteries and the v ertebral arteries was performed bilaterally. Williamson scale imaging, velocity spectral waveform analysis, and color flow Doppler were employed. HISTORY: stroke COMPARISONS: None . Note: Measurement of carotid stenosis is based on flow velocity values that correlate with the [place] Symptomatic Carotid Endarterectomy Trial (NASCET) based stenosis criteria using the internal carotid artery diameter as the denominator for stenosis calculation. FINDINGS: RIGHT carotid artery: Velocities: ICA PSV: 98 cm/sec ICA End diastolic: 38 cm/sec CCA PSV: 88 cm/sec IC/CC ratio: 1.11 Plaque/color flow: Mild heterogeneous plaque without significant spectral broadening or abnormal col or flow . RIGHT vertebral artery: Antegrade systolic and diastolic flow LEFT carotid artery: Velocities: ICA PSV: 105 cm/sec ICA End diastolic: 45 cm/sec CCA PSV: 96 cm/sec IC/CC ratio: 1.1 Plaque/color flow: Mild heterogeneous plaque without significant spectral broadening or abnormal col or flow . LEFT vertebral artery: Antegrade systolic and diastolic flow IMPRESSION: 1. RIGHT carotid: No hemodynamically significant (less than 50 percent) internal carotid artery raj nosis. 2. LEFT carotid: No hemodynamically significant (less than 50 percent) internal carotid artery sten osis. 3. Vertebral arteries: Bilaterally antegrade. This document is electronically signed by Areli Velasco., Sep 07 2018 02:17:32 PM ET
[2018-09-07] MEDS: COGENTIN PO SCH (15:39)
[2018-09-07] MEDS ORDERED: BENADRYL PO SCH (22:00)
[2018-09-07] MEDS: LANTUS SUB-Q SCH (22:09)
[2018-09-08 07:57] VITALS: BP 118/68
[2018-09-08] MEDS: HumaLOG SUB-Q SCH ×4 (09:18→12:25)
[2018-09-08] MEDS ORDERED: VITAMIN B-1 PO SCH (10:00)
--- NOTE | 2018-09-08 10:45 | Progress Note ---
Subjective - Reason for Consult Consult date: 09/08/18 Reason for consult: Psychiatry Follow-up - Chief Complaint Chief complaint: "Iim well" 63-year-old AA male who presented to the ER for possible EPS symptoms, he was a patient at [facility]. Today the patient was calm and cooperative during the assessment. He stated that he had a good night and slept well. He stated that he will follow up with his psychiatrist at the [place] or [place] when discharged. He denies any EPS symptoms when asked. He denies SI/HI's and AVH's. Mental Status Exam - Vital signs Last Vital Signs Temp 98.6 F 09/08/18 07:55 Pulse 72 09/08/18 07:55 Resp 18 09/08/18 07:55 BP 118/68 09/08/18 07:55 Pulse Ox 99 09/08/18 07:55 - Exam Narrative exam: MSE: Appearance: calm, cooperative Behavior: regular eye contact Speech: regular rate and tone Mood: "okay" Affect: congruent to mood Thought Process: logical Thought Content: denies SI/HI's and AVH's Motor Activity: sitting up in bed Cognition: A/O x 3 Insight: appropriate Judgment: appropriate Assessment and Plan Impression: Hx of Depression. Possible EPS on arrival to ER. R/O medication induced tremors (Beckley). Beckley level 1.0. Today the patient was calm and cooperative during the assessment. No involuntary movements noted. Recommendation/Plan: Continue home medications Beckley 300 mg PO BID for mood, Prozac 20 mg PO daily for depression, and start Cogentin 1 mg PO daily for EPS p revention. The patient received the monthly Invega injection 2 days ago. Discussed possible suicidality/medication induced delmer with the patient reference Prozac, he verbalized understanding. The patient agreed not to take any antipsychotics until he follow up with his psychiatrist. Psy sign off. Dispo: The patient can return to [facility] for outpatient psy services. Also, the patient can follow up with the [place] for outpatient psy services. Will staff with Dr Tien Peng.
[2018-09-08] MEDS: NEURONTIN PO SCH (12:16)
[2018-09-08] MEDS: PROTONIX PO SCH (12:17)
[2018-09-08] MEDS: ASPIRIN PO SCH (12:17)
[2018-09-08] MEDS: FOLVITE PO SCH (12:17)
[2018-09-08] MEDS: HEPARIN SUB-Q SCH (12:17)
[2018-09-08] MEDS: PROzac PO SCH (12:17)
[2018-09-08] MEDS: ZOVIRAX PO SCH (12:17)
[2018-09-08] MEDS: TOPROL XL PO SCH (12:17)
[2018-09-08] MEDS: ESKALITH PO SCH (12:20)
[2018-09-08] MEDS: COGENTIN PO SCH (12:20)
--- NOTE | 2018-09-08 12:36 | Progress Note ---
Assessment and Plan Assessment and plan: EPS. Continue Cogentin. Acute encephalopathy. Etiology secondary to above. Resolved. Hypertension. Continue antihypertensive medications. GERD. Continue PPI. Diabetes mellitus type 2. Poorly controlled. Patient's hemoglobin A1c 12.3. Continue sliding scale insulin and Accu-Cheks. Coronary artery disease. Stable. Major depressive disorder. Patient denies SI/HI History Interval history: Patient is a 63-year-old -[place] man with a history of major depressive disorder, hypertension, CHF, DM 2, GERD and CAD [facility] w ith complaints tremors and involuntary movement. On initial examination patient had expressive aphasia (stutters and repeats the same word several times before complete and sentence), involuntary movements, tremors in all extremities and ataxia. While in the ED he attempted to get up from stretcher and fell hard to the floor due to unstable gait. He did not sustain any trauma related to this fall. CT head was unrevealing for acute intracranial processes. He was admitted to the medical floor. He is from [facility]. He was under 1013 for SI but resolved and 1013 removed. He was suppose to transition to the [place] prior to his acute confusion, tremors and ataxia. He believes it started with new antipsych medications. Psychiatry evaluated the patient and felt that symptoms were related to possible EPS. Medication-induced tremors were ruled out with checking lithium levels that were found to be normal. Patient's involuntary movements and tremors resolved. Psychiatry recommended to Continue home medications [place] 300 mg PO BID for mood, Prozac 20 mg PO daily for dep ression, and start Cogentin 1 mg PO daily for EPS prevention. The patient was evaluated by PT who recommends No new issues overnight. Hospitalist Physical - Constitutional Vitals: Temp Pulse Resp BP Pulse Ox 98.6 F 72 18 118/68 99 09/08/18 07:55 09/08/18 07:55 09/08/18 07:55 09/08/18 07:55 09/08/18 07:55 General appearance: Present: no acute distress, well-nourished - EENT Eyes: Present: PERRL, EOM intact ENT: hearing intact, clear oral mucosa, dentition normal - Neck Neck: Present: supple, normal ROM - Respiratory Respiratory effort: normal Respiratory: bilateral: CTA - Cardiovascular Rhythm: regular Heart Sounds: Present: S1 & S2. Absent: gallop, rub - Extremities Extremities: no ischemia, No edema, Full ROM - Abdominal General gastrointestinal: soft, non-tender, non-distended, normal bowel sounds - Integumentary Integumentary: Present: clear, warm, dry - Neurologic Neurologic: CNII-XII intact, moves all extremities Results - Labs CBC & Chem 7: 09/06/18 16:33 09/06/18 16:33 Labs: Laboratory Last Values WBC 6.9 K/mm3 (4.5-11.0) 09/06/18 16:33 RBC 3.82 M/mm3 (3.65-5.03) 09/06/18 16:33 Hgb 10.7 gm/dl (11.8-15.2) L 09/06/18 16:33 Hct 33.1 % (35.5-45.6) L 09/06/18 16:33 MCV 87 fl (84-94) 09/06/18 16:33 MCH 28 pg (28-32) 09/06/18 16:33 MCHC 32 % (32-34) 09/06/18 16:33 RDW 15.9 % (13.2-15.2) H 09/06/18 16:33 Plt Count 171 K/mm3 (140-440) 09/06/18 16:33 Lymph % (Auto) 14.6 % (13.4-35.0) 09/06/18 16:33 [place] % (Auto) 10.2 % (0.0-7.3) H 09/06/18 16:33 Eos % (Auto) 2.3 % (0.0-4.3) 09/06/18 16:33 Baso % (Auto) 0.7 % (0.0-1.8) 09/06/18 16:33 Lymph # 1.0 K/mm3 (1.2-5.4) L 09/06/18 16:33 [place] # 0.7 K/mm3 (0.0-0.8) 09/06/18 16:33 Eos # 0.2 K/mm3 (0.0-0.4) 09/06/18 16:33 Baso # 0.0 K/mm3 (0.0-0.1) 09/06/18 16:33 Seg Neutrophils % 72.2 % (40.0-70.0) H 09/06/18 16:33 Seg Neutrophils # 5.0 K/mm3 (1.8-7.7) 09/06/18 16:33 PT 12.5 Sec. (12.2-14.9) 09/06/18 18:54 INR 0.88 (0.87-1.13) 09/06/18 18:54 APTT 26.5 Sec. (24.2-36.6) 09/06/18 18:54 Sodium 142 mmol/L (137-145) 09/06/18 16:33 Potassium 4.0 mmol/L (3.6-5.0) 09/06/18 16:33 Chloride 106.4 mmol/L (98-107) 09/06/18 16:33 Carbon Dioxide 25 mmol/L (22-30) 09/06/18 16:33 15 mmol/L 09/06/18 16:33 BUN 15 mg/dL (9-20) 09/06/18 16:33 1.2 mg/dL (0.8-1.5) 09/06/18 16:33 Estimated GFR > 60 ml/min 09/06/18 16:33 13 % 09/06/18 16:33 Glucose 74 mg/dL (75-100) L 09/06/18 16:33 POC Glucose 97 (70-105) 09/08/18 12:08 12.3 % (4-6) H 09/06/18 20:32 Calcium 8.7 mg/dL (8.4-10.2) 09/06/18 16:33 < 0.010 ng/mL (0.00-0.029) 09/06/18 18:54 Triglycerides 67 mg/dL (2-149) 09/06/18 20:32 Cholesterol 108 mg/dL (50-199) 09/06/18 20:32 49 mg/dL (50-130) L 09/06/18 20:32 52 mg/dL (40-59) 09/06/18 20:32 2.07 % 09/06/18 20:32 Straw (Yellow) 09/07/18 13:22 Clear (Clear) 09/07/18 13:22 7.0 (5.0-7.0) 09/07/18 13:22 Ur Specific [place] 1.008 (1.003-1.030) 09/07/18 13:22 <15 mg/dl mg/dL (Negative) 09/07/18 13:22 50 mg/dL (Negative) 09/07/18 13:22 Neg mg/dL (Negative) 09/07/18 13:22 Neg (Negative) 09/07/18 13:22 Neg (Negative) 09/07/18 13:22 Neg (Negative) 09/07/18 13:22 < 2.0 mg/dL (<2.0) 09/07/18 13:22 Ur Leukocyte Esterase Neg (Negative) 09/07/18 13:22 < 1.0 /HPF (0.0-6.0) 09/07/18 13:22 2.0 /HPF (0.0-6.0) 09/07/18 13:22 Presumptive negative 09/07/18 13:22 Presumptive negative 09/07/18 13:22 Ur Barbiturates Screen Presumptive negative 09/07/18 13:22 Ur Phencyclidine Scrn Presumptive negative 09/07/18 13:22 Ur Amphetamines Screen Presumptive negative 09/07/18 13:22 U Benzodiazepines Scrn Presumptive negative 09/07/18 13:22 [place] 1.0 mmol/L (0.0-1.2) 09/06/18 16:33 Presumptive negative 09/07/18 13:22 U Marijuana (THC) Screen Presumptive negative 09/07/18 13:22 Disclamer 09/07/18 13:22 Plasma/Serum Alcohol < 0.01 % (0-0.07) 09/06/18 19:26 Active Medications - Current Medications Current Medications: Generic Name Dose Route Start Last Admin Trade Name Freq PRN Reason Stop Dose Admin Acyclovir 400 mg 09/06/18 22:00 09/08/18 12:17 Zovirax PO 400 mg Q12HR JOLENE Administration Aspirin 325 mg 09/07/18 10:00 09/08/18 12:17 Aspirin PO 325 mg QDAY JOLENE Administration Atorvastatin Calcium 40 mg 09/06/18 22:00 09/07/18 22:07 Lipitor PO 40 mg QHS JOLENE Administration Benztropine Mesylate 1 mg 09/07/18 13:00 09/08/18 12:20 Cogentin PO 1 mg DAILY JOLENE Administration Dextrose 50 ml 09/06/18 19:58 D50w (25gm) Syringe IV PRN PRN Hypoglycemia Fluoxetine HCl 20 mg 09/07/18 10:00 09/08/18 12:17 Prozac PO 20 mg QDAY JOLENE Administration Folic Acid 1 mg 09/07/18 10:00 09/08/18 12:17 Folvite PO 1 mg QDAY JOLENE Administration Gabapentin 600 mg 09/07/18 08:00 09/08/18 12:16 Neurontin PO 600 mg TID JOLENE Administration Haloperidol Lactate 5 mg 09/07/18 00:25 09/07/18 00:40 Haldol IM 5 mg Q6H PRN Administration Agitation Heparin Sodium (Porcine) 5,000 unit 09/06/18 22:00 09/08/18 12:17 Heparin SUB-Q 5,000 unit Q12HR JOLENE Administration Hydralazine HCl 10 mg 09/06/18 20:28 Apresoline IV Q4HR PRN Blood Pressure Insulin Glargine 15 units 09/06/18 22:00 09/07/18 22:09 Lantus SUB-Q 15 units QHS JOLENE Administration Insulin Human Lispro 0 unit 09/06/18 22:00 09/08/18 12:25 Humalog SUB-Q Not Given ACHS [facility] Protocol Insulin Human Lispro 5 unit 09/07/18 07:30 09/08/18 12:25 Humalog SUB-Q Not Given AC [facility] [place] Carbonate 300 mg 09/06/18 22:00 09/08/18 12:20 Eskalith PO 300 mg BID JOLENE Administration Metoprolol Succinate 50 mg 09/07/18 10:00 09/08/18 12:17 Toprol Xl PO 50 mg QDAY JOLENE Administration Pantoprazole Sodium 40 mg 09/07/18 10:00 09/08/18 12:17 Protonix PO 40 mg QDAY JOLENE Administration Sodium Chloride 10 ml 09/06/18 20:08 Sodium Chloride Flush Syringe 10 Ml IV PRN PRN LINE FLUSH Thiamine HCl 100 mg 09/08/18 10:00 09/08/18 12:16 Vitamin B-1 PO 100 mg QDAY JOLENE Administration Nutrition/Malnutrition Assess - Dietary Evaluation Nutrition/Malnutrition Findings: Nutrition Notes Start: 09/07/18 15:57 Freq: Status: Active Protocol: Document 09/07/18 15:57 NHALL (Rec: 09/07/18 16:02 SELMA [email or web address]) Nutrition Notes Need for Assessment generated from: MD Order Initial or Follow up Assessment Current Diagnosis Coronary Artery Disease, Diabetes,Hypertension,Heart Failure Other Pertinent Diagnosis Encephalopathy, tremors/ involuntary movements Current Diet Cardiac/Consistent CHO Labs/Tests A1C 12.3 Pertinent Medications reviewed Height 5 ft 11 in Weight 81.647 kg [place] Body Weight (kg) 78.18 BMI 25.1 Subjective/Other Information RD consulted for diet education. Pt working with PT at time of visit (12:22). Not appropriate for diet education at this time. Pt from [facility]. 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 No Is Patient Ambulatory and/or Out of Bed Yes REE-(Sixes-St. Jeor-ambulatory/OOB) [ 2130.180 NUTR.MSJOOB] Calculation Used for Recommendations Sixes-St Jeor Additional Notes Pro needs 1-1.2g/k-98g/ day Fluid needs 1ml/kcal Nutrition Intervention Change Diet Order: Continue current diet order Goal #1 PO intake to meet at least 75% energy and pro needs Goal #2 Improved BG control Anticipated Discharge Needs: CHO-controlled diet Follow-Up By: 09/11/18 Additional Comments F/U: intakes, DM diet education needs
--- NOTE | 2018-09-08 13:05 | Discharge Summary ---
Providers - Providers Date of Admission: 09/06/18 19:00 Date of discharge: 09/08/18 Attending physician: YO TIJERINA 09/06/18 19:58 Consult to Dietitian/Nutrition [CONS] Routine Physician Instructions: Reason For Exam: Reason for Consult: Diet education 09/06/18 20:08 Occupational Therapy Evaluate and Treat [CONS] Routine Comment: Reason For Exam: Neuro deficits Physical Therapy Evaluation and Treat [CONS] Routine Comment: Reason For Exam: Neuro deficits 09/07/18 00:28 Consult to Mental Health [CONS] Routine Reason For Exam: hx major depression, possible eps Place consult to:: telemetry Notified:: mental health Phone number called:: [phone] Was contact made?: Yes If yes, spoke with:: denys Time called:: 08:45 Primary care physician: DIRECTOR OF FINANCIAL AID Hospitalization Reason for admission: tremors and AMS Condition: Stable Hospital course: Patient is a 63-year-old -[place]ij[place] man with a history of major depressive disorder, hypertension, CHF, DM 2, GERD and CAD who presents to [facility] via EMS with complaints tremors and involuntary movement. On initial examination patient had expressive aphasia (stutters and repeats the same word several times before complete and sentence), involuntary movements, tremors in all extremities and ataxia. While in the ED he attempted to get up from stretcher and fell hard to the floor due to unstable gait. He did not sustain any trauma related to this fall. CT head was unrevealing for acute intracranial processes. He was admitted to the medical floor. He is from [facility]. He was under 1013 for SI but resolved and 1013 removed. He was suppose to transition to the [place] prior to his acute confusion, tremors and ataxia. He believes it started with new antipsych medications. Psychiatry evaluated the patient and felt that symptoms were related to possible EPS. Medication-induced tremors were ruled out with checking lithium levels that were found to be normal. Patient's involuntary movements and tremors resolved. Psychiatry recommended to Continue home medications [place] 300 mg PO BID for mood, Prozac 20 mg PO daily for depression, and start Cogentin 1 mg PO daily for EPS prevention. The patient was evaluated by PT who recommended no needs per CM. The patient will discharge back to [place] Disposition: DC/TX-70 ANOTHER TYPE THCARE Time spent for discharge: 32 - Discharge Diagnoses (1) Extrapyramidal disease or syndrome Status: Acute (2) Ataxia Status: Acute (3) Expressive aphasia Status: Acute Core Measure Documentation - Palliative Care Palliative Care/ Comfort Measures: Not Applicable - Core Measures Any of the following diagnoses?: none Exam - Constitutional Vitals: Temp Pulse Resp BP Pulse Ox 98.6 F 72 18 118/68 99 09/08/18 07:55 09/08/18 07:55 09/08/18 07:55 09/08/18 07:55 09/08/18 07:55 General appearance: Present: no acute distress, well-nourished - EENT Eyes: Present: PERRL ENT: hearing intact, clear oral mucosa - Neck Neck: Present: supple, normal ROM - Respiratory Respiratory effort: normal Respiratory: bilateral: CTA - Cardiovascular Heart Sounds: Present: S1 & S2. Absent: rub, click - Extremities Extremities: pulses symmetrical, No edema Peripheral Pulses: within normal limits - Abdominal General gastrointestinal: Present: soft, non-tender, non-distended, normal bowel sounds Male genitourinary: Present: normal - Integumentary Integumentary: Present: clear, warm, dry - Musculoskeletal Musculoskeletal: gait normal, strength equal bilaterally - Psychiatric Psychiatric: appropriate mood/affect, intact judgment & insight - Neurologic Neurologic: CNII-XII intact, moves all extremities Plan Activity: advance as tolerated Weight Bearing Status: Weight Bear as Tolerated Diet: low fat, low cholesterol, low salt Follow up with: PRIMARY CARE, [Primary Care Provider] - 3-5 Days Prescriptions: Aspirin 325 mg PO QDAY #30 tablet Benztropine [Cogentin] 1 mg PO DAILY #30 tablet [place] Carbonate [Eskalith] 300 mg PO BID #60 capsule Folic Acid [Folvite] 1 mg PO QDAY #30 tablet AtorvaSTATin [Lipitor] 40 mg PO QHS #30 tablet Metoprolol Xl [Metoprolol SUCCINATE ER TAB] 50 mg PO QDAY #30 tablet Gabapentin [Neurontin] 600 mg PO TID #90 capsule Pantoprazole [Protonix TAB] 40 mg PO QDAY #30 tablet FLUoxetine [PROzac] 20 mg PO QDAY #30 capsule Thiamine [Vitamin B-1] 100 mg PO QDAY #30 tablet
== END 2018-09-08 14:55 | DRG 57 ==
LOC: ED 15:59 → 4A 19:00
PROVIDERS: ADMIT Internal Medicine; ATTEND Hospitalist
DX: G25.9 Extrapyramidal and movement disorder, unspecified (principal); G93.40 Encephalopathy, unspecified; R47.01 Aphasia; I13.0 Hypertensive heart and chronic kidney disease with heart failure and stage 1 through stage 4 chronic kidney disease, or unspecified chronic kidney disease; R27.0 Ataxia, unspecified; F32.9 Major depressive disorder, single episode, unspecified; K21.9 Gastro-esophageal reflux disease without esophagitis; I25.10 Atherosclerotic heart disease of native coronary artery without angina pectoris; I50.9 Heart failure, unspecified; E11.40 Type 2 diabetes mellitus with diabetic neuropathy, unspecified; F17.200 Nicotine dependence, unspecified, uncomplicated; F10.10 Alcohol abuse, uncomplicated; N18.9 Chronic kidney disease, unspecified; E11.22 Type 2 diabetes mellitus with diabetic chronic kidney disease; Z88.0 Allergy status to penicillin; Z95.810 Presence of automatic (implantable) cardiac defibrillator
CPT/HCPCS: 36415; 70450; 80048; 80061; 80178; 80307; 80320; 81001; 82962; 83036; 84425; 84484; 85025; 85610; 85730; 93005; 93010; 93880; 99406; G0378; A9270-GY; G0480; J0515; J1200; J1630; J1644; J1815; J3411

== ENCOUNTER 2018-09-13 19:41 | Emergency (ER) | payer MEDICARE ==
[2018-09-13] MEDS ORDERED: BENADRYL IV ONE (20:43)
[2018-09-13] MEDS ORDERED: TORADOL IV ONE (20:43)
--- NOTE | 2018-09-13 21:23 | Emergency Department Report ---
ED General Adult HPI - General Chief complaint: Medical Clearance Stated complaint: TREMORS Time Seen by Provider: 09/13/18 20:25 Source: patient, EMS Mode of arrival: Wheelchair Limitations: Physical Limitation - History of Present Illness Initial comments: 63-year-old male with a past medical history of CHF, diabetes, hypertension, depressive disorder, renal insufficiency, and AICD presents to the hospital with complaints of persistent tremors. Patient was recently admitted here a discharge of September 08 with the same complaints. Since it was thought to be due to EPS. His Risperdal was discontinued. Patient states that his symptoms improved prior to discharge however, they have felt further improve. Patient is taking unknown dose of Benadryl twice a day. He states that he primarily has significant shaking and tremor when trying to lift himself up to stand. Once he is up instead he states his gait is steady. He is currently at the [facility] psychiatric outpatient center. They were concerned about his shaking episode and sent him here to the ER.. Patient complains of some mild right- sided neck pain. He denies trauma or paresthesias. Severity scale (0 -10): 5 - Related Data Previous Rx's Medication Instructions Recorded Last Taken Type Acyclovir [Zovirax Cap] 400 mg PO Q12HR capsule 09/08/18 Unknown Rx Aspirin 325 mg PO QDAY #30 tablet 09/08/18 Unknown Rx AtorvaSTATin [Lipitor] 40 mg PO QHS #30 tablet 09/08/18 Unknown Rx Benztropine [Cogentin] 1 mg PO DAILY #30 tablet 09/08/18 Unknown Rx FLUoxetine [PROzac] 20 mg PO QDAY #30 capsule 09/08/18 Unknown Rx Folic Acid [Folvite] 1 mg PO QDAY #30 tablet 09/08/18 Unknown Rx Gabapentin [Neurontin] 600 mg PO TID #90 capsule 09/08/18 Unknown Rx Insulin Glargine [Lantus VIAL] 15 units SUB-Q QHS units 09/08/18 Unknown Rx Metoprolol Xl [Metoprolol 50 mg PO QDAY #30 tablet 09/08/18 Unknown Rx SUCCINATE ER TAB] Pantoprazole [Protonix TAB] 40 mg PO QDAY #30 tablet 09/08/18 Unknown Rx Thiamine [Vitamin B-1] 100 mg PO QDAY #30 tablet 09/08/18 Unknown Rx Allergies Allergy/AdvReac Type Severity Reaction Status Date / Time Penicillins Allergy Unknown Verified 09/06/18 16:17 ED Review of Systems ROS: Stated complaint: TREMORS Other details as noted in HPI Comment: All other systems reviewed and negative ED Past Medical Hx - Past Medical History Previous Medical History?: Yes Hx Hypertension: Yes Hx Congestive Heart Failure: Yes Hx Diabetes: Yes Hx Renal Disease: Yes (CKD) Hx Psychiatric Treatment: Yes (MDD, voluntary @ [place]) Additional medical history: neuropathy, pancreatitis, CAD, glaucoma - Surgical History Past Surgical History?: Yes Hx Pacemaker: Yes Hx Internal Defibrillator: Yes - Social History Smoking Status: Current Every Day Smoker Substance Use Type: Prescribed - Medications Home Medications: Home Medications Medication Instructions Recorded Confirmed Last Taken Type Acyclovir [Zovirax Cap] 400 mg PO Q12HR capsule 09/08/18 Unknown Rx Aspirin 325 mg PO QDAY #30 tablet 09/08/18 Unknown Rx AtorvaSTATin [Lipitor] 40 mg PO QHS #30 tablet 09/08/18 Unknown Rx Benztropine [Cogentin] 1 mg PO DAILY #30 tablet 09/08/18 Unknown Rx FLUoxetine [PROzac] 20 mg PO QDAY #30 capsule 09/08/18 Unknown Rx Folic Acid [Folvite] 1 mg PO QDAY #30 tablet 09/08/18 Unknown Rx Gabapentin [Neurontin] 600 mg PO TID #90 capsule 09/08/18 Unknown Rx Insulin Glargine [Lantus VIAL] 15 units SUB-Q QHS units 09/08/18 Unknown Rx Metoprolol Xl [Metoprolol 50 mg PO QDAY #30 tablet 09/08/18 Unknown Rx SUCCINATE ER TAB] Pantoprazole [Protonix TAB] 40 mg PO QDAY #30 tablet 09/08/18 Unknown Rx Thiamine [Vitamin B-1] 100 mg PO QDAY #30 tablet 09/08/18 Unknown Rx ED Physical Exam - General Limitations: Physical Limitation - Other Other exam information: General: No limitations, patient is alert in no acute distress Head exam: Atraumatic, normocephalic Eyes exam: Normal appearance ENT: Moist mucous membrane Neck exam: Normal inspection, full range of motion, no meningismus, right side neck muscle tenderness without midline tenderness Respiratory exam: Clear to auscultation bilateral, no wheezes, rales, crackles Cardiovascular: Normal rate and rhythm, normal heart sounds Abdomen: Soft, nondistended, and nontender, with normal bowel sounds, no rebound, or guarding Extremity: Full range of motion normal inspection no deformity Back: Normal Inspection, full range of motion, no tenderness Neurologic: Alert, oriented x3, cranial nerves intact, no motor or sensory deficit, [id number] intact, no intention or resting temor noted. Psychiatric: normal affect, normal mood Skin: Warm, dry, intact ED Course Vital Signs 09/13/18 09/13/18 09/13/18 20:09 20:24 21:00 Temperature 97.9 F 97.9 F Pulse Rate 69 69 69 Respiratory 15 14 15 Rate Blood Pressure 128/75 121/63 Blood Pressure 128/75 [Left] O2 Sat by Pulse 100 100 97 Oximetry 09/13/18 09/13/18 22:00 23:00 Temperature Pulse Rate 66 67 Respiratory 13 12 Rate Blood Pressure 117/60 112/57 Blood Pressure [Left] O2 Sat by Pulse 99 97 Oximetry - Consultations Consultation #1: 09/13/18 21:28 case d/w tele neuro. will evaluate the pt 09/13/18 21:55 Case discussed with her neurologist is Dr. Teague. She evaluated patient and thinks that neurologic movements are more suggestive of asterixis. This could be due to even therapeutically [place] levels. Recommend an ammonia level and to discontinue lithium with additional Psych management as per patient's psychiatrist. ED Medical Decision Making - Lab Data Result diagrams: 09/13/18 22:08 09/13/18 22:08 Lab Results 09/13/18 09/13/18 09/13/18 Range/Units 22:08 22:08 22:08 WBC 7.0 (4.5-11.0) K/mm3 RBC 4.06 (3.65-5.03) M/mm3 Hgb 11.7 L (11.8-15.2) gm/dl Hct 35.5 (35.5-45.6) % MCV 87 (84-94) fl MCH 29 (28-32) pg MCHC 33 (32-34) % RDW 15.7 H (13.2-15.2) % Plt Count 183 (140-440) K/mm3 Lymph % (Auto) 32.4 (13.4-35.0) % [place] % (Auto) 7.7 H (0.0-7.3) % Eos % (Auto) 4.5 H (0.0-4.3) % Baso % (Auto) 0.4 (0.0-1.8) % Lymph # 2.3 (1.2-5.4) K/mm3 [place] # 0.5 (0.0-0.8) K/mm3 Eos # 0.3 (0.0-0.4) K/mm3 Baso # 0.0 (0.0-0.1) K/mm3 Seg Neutrophils % 55.0 (40.0-70.0) % Seg Neutrophils # 3.9 (1.8-7.7) K/mm3 Sodium 141 (137-145) mmol/L Potassium 4.5 (3.6-5.0) mmol/L Chloride 108.9 H (98-107) mmol/L Carbon Dioxide 23 (22-30) mmol/L Anion Gap 14 mmol/L BUN 18 (9-20) mg/dL Creatinine 1.1 (0.8-1.5) mg/dL Estimated GFR > 60 ml/min BUN/Creatinine Ratio 16 % Glucose 253 H (75-100) mg/dL Calcium 8.4 (8.4-10.2) mg/dL Magnesium 2.30 (1.7-2.3) mg/dL Ammonia 42.0 (25-60) umol/L [place] (0.0-1.2) mmol/L 09/13/18 Range/Units 22:08 WBC (4.5-11.0) K/mm3 RBC (3.65-5.03) M/mm3 Hgb (11.8-15.2) gm/dl Hct (35.5-45.6) % MCV (84-94) fl MCH (28-32) pg MCHC (32-34) % RDW (13.2-15.2) % Plt Count (140-440) K/mm3 Lymph % (Auto) (13.4-35.0) % [place] % (Auto) (0.0-7.3) % Eos % (Auto) (0.0-4.3) % Baso % (Auto) (0.0-1.8) % Lymph # (1.2-5.4) K/mm3 [place] # (0.0-0.8) K/mm3 Eos # (0.0-0.4) K/mm3 Baso # (0.0-0.1) K/mm3 Seg Neutrophils % (40.0-70.0) % Seg Neutrophils # (1.8-7.7) K/mm3 Sodium (137-145) mmol/L Potassium (3.6-5.0) mmol/L Chloride (98-107) mmol/L Carbon Dioxide (22-30) mmol/L Anion Gap mmol/L BUN (9-20) mg/dL Creatinine (0.8-1.5) mg/dL Estimated GFR ml/min BUN/Creatinine Ratio % Glucose (75-100) mg/dL Calcium (8.4-10.2) mg/dL Magnesium (1.7-2.3) mg/dL Ammonia (25-60) umol/L [place] 1.0 (0.0-1.2) mmol/L - Medical Decision Making Patient treated with Benadryl and Toradol in the ED [place] level is therapeutic. No signs elevated ammonia After discussion with neurologist it is suspected that the Patient has asterixis is was to be caused by lithium even after repeated doses. He was instructed to tell his psychiatrist that the neurologist recommends him to discontinued the lithium and he would therefore need to be managed with an alternative medication. Will be sent back to [facility] - Differential Diagnosis EPS, Parkinson disorder, movement disorder Critical Care Time: No Critical care attestation.: If time is entered above; I have spent that time in minutes in the direct care of this critically ill patient, excluding procedure time. ED Disposition Clinical Impression: Asterixis, Adverse effects of medication Disposition: DC-01 TO HOME OR SELFCARE Is pt being admited?: No Does the pt Need Aspirin: No Condition: Stable Instructions: Fall Prevention for Older Adults (ED) Additional Instructions: Your abnormal body movements were discussed with the neurologist who evaluated you in the ED. It is suspected that your symptoms may be caused by your lithium even at therapeutic levels. The neurologist recommended that you discontinue the lithium. This should be managed by your psychiatrist who will need to treat you with an alternative medication to stabilize your mood. Referrals: your, psychiatrist [Other] - 24 Hours RAMESH ARMENDARIZ MD [Staff Physician] - 3-5 Days (Neurologist) Time of Disposition: 23:17
--- NOTE | 2018-09-13 21:56 | Emergency Department Report ---
Anamika Doc - Documentation Documentation: [facility] Impression: Asterixis, Likely lithium induced tremor in this case It is possible that this is related to hyperammonemia but there is no h/o liver disease and he is not on VPA currently. Would check nh3 to be sure. Comments: STAT neurology consult Recommendations: In setting of unremarkable ammonia, rec adjustment of the Huetter dose as per psychiatry Discussed with ED MD Please call with questions CC stroke alert History of Present Illness Patient is a 63 yo M with h/o HTN psychiatric disease who is currently in outpt psychiatric treatment He c/o tremor in the linette UE that worsens when he puts weight on his arms. He also notes some transient difficulty standing that resolves. The tremor has been present since he stopped his risperdal due to EPS - this is currently being treated with benadryl successfully. Exam: Patient is in no apparent distress. Patient appears as stated age. No obvious acute respiratory or cardiac distress. Patient is well groomed and well- nourished. alert oriented and appropriate follows all commands speech slightly dysarthric no drift is extremities there is flapping, [id number] tremor in the linette UE c/w asterixis. Medical Decision Making: - Extensive number of diagnosis or management options are considered above. - Extensive amount of complex data reviewed. - High risk of complication and/or morbidity or mortality are associated with differential diagnostic considerations above. - There may be Uncertain outcome and increased probability of prolonged functional impairment or high probability of severe prolonged functional impairment associated with some of these differential diagnosis. Medical Data Reviewed: 1.Data reviewed include clinical labs, radiology, Medical Tests; 2.Tests results discussed w/performing or interpreting physician; 3.Obtaining/reviewing old medical records; 4.Obtaining case history from another source; 5.Independent review of image, tracing or specimen. Patient was informed the Neurology Consult would happen via telehealth (remote video) and consented to receiving care in this manner.
[2018-09-13 22:35] LABS: Eosinophils # (Auto) 0.3 K/mm3 (0.0-0.4); Eosinophils % (Auto) 4.5 % (0.0-4.3); Hematocrit 35.5 % (35.5-45.6); Hemoglobin 11.7 gm/dl (11.8-15.2); Lymphocytes # (Auto) 2.3 K/mm3 (1.2-5.4); Lymphocytes % (Auto) 32.4 % (13.4-35.0); Mean Corpuscular HGB Conc 33 % (32-34); Mean Corpuscular Volume 87 fl (84-94); Monocytes # (Auto) 0.5 K/mm3 (0.0-0.8); Monocytes % (Auto) 7.7 % (0.0-7.3); Platelet Count 183 K/mm3 (140-440); Red Blood Count 4.06 M/mm3 (3.65-5.03); Red Cell Distribution Width 15.7 % (13.2-15.2)
[2018-09-13 22:41] LABS: Basophils % (Auto) 0.4 % (0.0-1.8)
[2018-09-13 22:52] LABS: BUN/Creatinine Ratio 16; Blood Urea Nitrogen 18 mg/dL (9-20); Calcium 8.4 mg/dL (8.4-10.2); Hemolysis Index 1
[2018-09-13 23:05] VITALS: BP 112/57
== END 2018-09-13 23:35 | disposition home or self-care (01) ==
LOC: ED 19:41
DX: R27.8 Other lack of coordination (principal); T45.0X5A Adverse effect of antiallergic and antiemetic drugs, initial encounter; M54.2 Cervicalgia; I13.0 Hypertensive heart and chronic kidney disease with heart failure and stage 1 through stage 4 chronic kidney disease, or unspecified chronic kidney disease; I50.9 Heart failure, unspecified; E11.22 Type 2 diabetes mellitus with diabetic chronic kidney disease; E11.40 Type 2 diabetes mellitus with diabetic neuropathy, unspecified; N18.9 Chronic kidney disease, unspecified; F17.200 Nicotine dependence, unspecified, uncomplicated; Z95.0 Presence of cardiac pacemaker; Z79.82 Long term (current) use of aspirin; Z88.0 Allergy status to penicillin; Y92.89 Other specified places as the place of occurrence of the external cause
CPT/HCPCS: 36415; 80048; 80178; 82140; 83735; 85025; 96374; 96375; 99284; J1200; J1885